=== PATIENT | female | born 1970 | race Two or more races ===

== ENCOUNTER 2021-07-08 00:51 | Inpatient (IN) | payer MEDICAID ==
[~2021-07-08] VITALS: Ht 182.9 cm; Wt 152.0 kg
--- NOTE | 2021-07-08 03:56 | NUR ---
ALESSANDRO LEGAL RECEPTIONIST NOTES: RECEIVED PATIENT FROM [facility] A DIRECT ADMIT, PATIENT A/O X4, VERBAL, V/S WNL, PATIENT DESCRIBES PAIN IN CHEST WITH INHALATION, NO SOB NOTED, SKIN INTACT, REDNESS RIGHT BREASTFOLD, PICTURE TAKEN AND DOCUMENTED, WAITING FOR ADMITTING ORDERS BY SHARMAINE COOPER, BED AT LOWEST POSITION, BRAKES LOCKED, CALL LIGHT WITHIN REACH, CLAY PLANT TREATER PLACED, SR WITH PVCS 85 HR, SIDE RAILS UP X2, WILL CONTINUE TO MONITOR AND FOLLOW UP WITH ADMITTING ORDERS. Addendum: 07/08/21 at 0359 by BANDAR KAUR RN IV ON RT FOREARM #20, INTACT AND PATENT
[2021-07-08] MEDS ORDERED: ACETAMINOPHEN 325 MG TABLET PO PRN (05:00)
[2021-07-08] MEDS ORDERED: IV NS 0.9% 1,000 ML IV PRN (05:00)
[2021-07-08] MEDS ORDERED: Z GUARD REMEDY 2 OZ OINT TP PRN (05:00)
[2021-07-08] MEDS ORDERED: MAGNESIUM HYDROXIDE 30 ML UDC PO PRN (05:00)
[2021-07-08] MEDS ORDERED: ONDANSETRON HCL/PF 4 MG/2 ML VIAL IVP PRN (05:00)
[2021-07-08] MEDS ORDERED: MAG HYDROX/AL HYDROX/SIMETH 30 ML UDC PO PRN (05:00)
[2021-07-08 05:43] VITALS: BP 132/78
--- NOTE | 2021-07-08 06:44 | NUR ---
RN CLOSING NOTES: PATIENT STABLE, SLEEPING IN BED, V/S WNL, BED AT LOWEST POSITION, BRAKES LOCKED, CALL LIGHT WITHIN REACH, SIDE RAILS UP X2, WILL CONTINUE TO MONITOR AND ENDORSE TO DAY SHIFT NURSE. NO SIGNS OF SOB, NO PAIN, NO DISTRESS.
[2021-07-08] MEDS ORDERED: PANTOPRAZOLE 40 MG TABLET.DR PO SCH (07:30)
--- NOTE | 2021-07-08 07:30 | NUR ---
RN NOTES PT RECEIVED AWAKE A/O X4 , NO S/SX OF SOB AND DISTRESS. PT ON RA O2SAT 97%. PT ON TELE MONITOR, NSR + PVC NOTED NO COMPLAIN OF CHEST PAIN AT THIS TIME. PT AMBULATORY AND INDEPENDENT ON BED. CARDIAC DIET. IV PATENT AND INTACT, LOCATED AT RFA # 20 G, INFUSING NS 75ML/HR. SKIN AT RIGHT BREAST FOLD REDNESS AND RASH NOTED. SAFETY MEASURES IMPLEMENTED, BED AT LOW POSITION, WHEEL LOCKED, SIDERAILSX2 UP CALL LIGHT WITHIN REACH. WILL CONTINUE AND MONITOR PLAN OF CARE
[2021-07-08 08:00] VITALS: BP 123/74
[2021-07-08 08:18] LABS: BASOPHILS % (AUTO) 0.5 % (0.0-2.0); EOSINOPHILS % (AUTO) 4.5 % (0.0-6.0); HEMATOCRIT 37 % (33-45); HEMOGLOBIN 12.5 g/dL (11.5-14.8); LYMPHOCYTES # (AUTO) 1.4 K/uL (0.8-4.8); LYMPHOCYTES % (AUTO) 20.8 % (20.0-44.0); MEAN CORPUSCULAR HGB CONC 34 g/dl (31.0-36.0); MEAN CORPUSCULAR VOLUME 84 fL (82-100); MONOCYTES # (AUTO) 0.3 K/uL (0.1-1.30); MONOCYTES % (AUTO) 4.3 % (2.0-12.0); NEUTROPHILS # (AUTO) 4.7 K/uL (1.8-8.9); NEUTROPHILS % (AUTO) 69.9 % (43.0-81.0); PLATELET COUNT (AUTO) 302 K/uL (150-450); RED BLOOD CELL COUNT(AUTO) 4.44 MIL/uL (4.0-5.2); WHITE BLOOD COUNT (AUTO) 6.8 K/uL (4.3-11.0)
[2021-07-08 08:49] LABS: ALBUMIN 3.6 g/dL (3.4-5.0); BILIRUBIN,TOTAL 0.5 mg/dL (0.2-1.0); CALCIUM, SERUM 9.2 mg/dL (8.5-10.1); MAGNESIUM 2.3 mg/dL (1.8-2.4); PHOSPHORUS 4.6 mg/dL (2.5-4.9); POTASSIUM 3.9 mmol/L (3.5-5.1)
--- NOTE | 2021-07-08 10:45 | NUR ---
RN NOTE MRSA OF THE NARES COLLECTED.
[2021-07-08 12:00] VITALS: BP 120/74
[2021-07-08] MEDS ORDERED: HEPARIN INFUSION/D5W 500 ML IV PRN (12:00)
--- NOTE | 2021-07-08 14:51 | NUR ---
NM: LUNG V/Q WAS COMPLETED. TECH:RB
[2021-07-08 16:00] VITALS: BP 150/89
[2021-07-08] MEDS ORDERED: HEPARIN SODIUM, PORCINE 5000 UNITS/1 ML VIAL IV ONE (16:00)
--- NOTE | 2021-07-08 16:26 | NUR ---
RN NOTE PER DR. CONTRERAS, NO NEED TO DO COVID PCR OR RAPID TEST, PATIENT TESTED NEGATIVE FROM [facility] 07/07/21
--- NOTE | 2021-07-08 17:15 | NUR ---
RN NOTE NOTIFIED DR. TEJADA REGARDING PATIENT LUNG SCAN RESULT, AND PATIENT EXTREMITIES VENOUS STUDY TO RULE OUT PULMONARY EMBOLISM AND DVT, MD ORDER TO DISCONTINUE HEPARIN DRIP.
--- NOTE | 2021-07-08 18:02 | NUR ---
RN NOTE PATIENT WANTS TO GO LEAVE THE HOSPITAL AGAINST MEDICAL ADVICE OF DR. BEN MD AWARE, PATIENT IS ALERT AND ORIENTED X4 ABLE TO MAKE OWN DECISION SIGNED HER AMA.
== END 2021-07-08 18:06 | disposition home or self-care (01) | DRG 134 ==
LOC: TELE-TD 03:23
DX: I26.99 Other pulmonary embolism without acute cor pulmonale (principal); E66.9 Obesity, unspecified; G47.33 Obstructive sleep apnea (adult) (pediatric); R79.89 Other specified abnormal findings of blood chemistry; Z20.822 Contact with and (suspected) exposure to COVID-19; Z68.42 Body mass index [BMI] 45.0-49.9, adult
CPT/HCPCS: 36415; 78582; 80053-TC; 83735-TC; 84100-TC; 84703-TC; 85025-TC; 85730-TC; 87081-TC; 93970-TC; A9540; A9567; G0378; J1644; J7030